=== PATIENT | female | born 1960 ===

== ENCOUNTER 2018-06-03 08:19 | Emergency (ER) | payer OTHER ==
[~2018-06-03] VITALS: Ht 170.2 cm; Wt 93.0 kg
[~2018-06-03 08:19] MED LIST: ATARAX25 MG PO; MEDROLPACK PO; ZYRTEC10 M3 PO
[2018-06-03] MEDS ORDERED: LISINOPRIL10 MG (08:26)
== END 2018-06-03 13:39 | disposition home or self-care (01) ==
LOC: ER 08:19
DX: K57.92 Diverticulitis of intestine, part unspecified, without perforation or abscess without bleeding (principal)

== ENCOUNTER 2019-01-02 10:36 | Emergency (ER) | payer OTHER ==
[~2019-01-02] VITALS: Ht 170.2 cm; Wt 90.7 kg
[~2019-01-02 10:36] MED LIST changes: +LISINOPRIL10 MG
[2019-01-02] MEDS ORDERED: LIPITOR20 MG (10:42)
== END 2019-01-02 14:24 | disposition home or self-care (01) ==
LOC: ER 10:36
DX: J40 Bronchitis, not specified as acute or chronic (principal)

== ENCOUNTER 2019-07-27 16:51 | Inpatient (IN) | payer OTHER ==
[~2019-07-27] VITALS: Ht 170.2 cm; Wt 90.7 kg
[~2019-07-27 16:51] MED LIST changes: +LIPITOR20 MG
[2019-07-30] MEDS ORDERED: AZITHROMYCIN250 MG PO (07:54)
== END 2019-07-30 10:51 | disposition home or self-care (01) | DRG 203 ==
LOC: ER 16:51 → MEDJ 19:00
PROVIDERS: ADMIT Internal Medicine
PROC: 4A033R1 Measurement of Arterial Saturation, Peripheral, Percutaneous Approach (ICD-10-PCS; 2019-07-27)
PROC: 3E0F7GC Introduction of Other Therapeutic Substance into Respiratory Tract, Via Natural or Artificial Opening (ICD-10-PCS; 2019-07-27)
PROC: CB2YYZZ Tomographic (Tomo) Nuclear Medicine Imaging of Respiratory System using Other Radionuclide (ICD-10-PCS; principal; 2019-07-28)
DX: J45.998 Other asthma (principal); I10 Essential (primary) hypertension; E11.9 Type 2 diabetes mellitus without complications; Z87.891 Personal history of nicotine dependence